=== PATIENT | female | born 1965 | race Caucasian/White ===

== ENCOUNTER → 2017-10-07 | Outpatient (CLI) | payer OTHER ==
--- NOTE | 2017-10-10 10:27 | RADIOLOGY REPORT PS360 ---
DIG MAMM-SCREEN SUSHANT W/CAD CAD Screening COMPARISON: Digital mammograms 09/12/2016 and additional views right breast 09/27/2016 INDICATION: There is a history of breast cancer in patient's mother and paternal grandmother both diagnosed after menopause. There is been previous cyst aspiration left breast. TECHNIQUE: Standard CC and MLO images were obtained. R2 CAD reviewed. FINDINGS: There is a markedly dense and heterogenic parenchymal pattern lessening the sensitivity of mammography. Again is a possible asymmetric density right breast just deep to the nipple and this area was evaluated last year with spot compression views. It appears slightly more prominent on the current exam but likely could be due to glandular tissue in this lady with very dense parenchymal pattern. A recommend patient return for ultrasound examination of this area for better evaluation. There is a mole marker right breast. There are few benign-appearing calcifications in each breast. There are no suspicious microcalcifications. IMPRESSION: Markedly dense parenchymal pattern with possible persistent and/or change in asymmetric density right breast recommend the patient return for ultrasound examination of the area marked on the film. BI-RADS CATEGORY: 0_Incomplete: Need additional imaging RECOMMENDED FOLLOWUP: USB ULTRASOUND-BREAST (A letter has been sent to the patient regarding results of the study.)
== END ==
LOC: RAD 08:58
DX: Z12.31 Encounter for screening mammogram for malignant neoplasm of breast (principal)
CPT/HCPCS: G0202